=== PATIENT | female | born 1980 | race Caucasian/White ===

== ENCOUNTER → 2016-11-30 | Outpatient (REF) | payer BC | LOC: M SFHCCLAY 08:31 | PROVIDERS: ATTEND Family Medicine | DX: Z12.4 Encounter for screening for malignant neoplasm of cervix (principal) ==

== ENCOUNTER → 2020-10-08 | Outpatient (CLI) | payer BC ==
[~2020-10-08] MED LIST: ACIDCAP8 PO; APAP500T10 PO; CYAN100049 PO; FLUTISP; IBUP-1022 PO; NEXI20CA33 PO; VITA-199 PO; VITA1TAB61 PO; VITMTA PO; XANA0.25 PO
== END ==
LOC: M LABSMTC 09:37
PROVIDERS: ATTEND Anesthesiology
DX: Z01.812 Encounter for preprocedural laboratory examination (principal); Z20.822 Contact with and (suspected) exposure to COVID-19

== ENCOUNTER 2020-10-13 10:32 | Day surgery (SDC) | payer BC ==
[~2020-10-13] VITALS: Ht 162.6 cm; Wt 92.9 kg
[~2020-10-13 10:32] MED LIST changes: +LR 1,000 ML IV ONE; +ceFAZolin SOD 2 GM in IV 1 EA IV ONE
[2020-10-13] MEDS ORDERED: MIDAZOLAM INJ 2MG/2ML VIAL (J2250 PER 1MG) As Ordered ONE (12:44)
[2020-10-13] MEDS ORDERED: propofoL 200 MG/20 ML VIAL As Ordered ONE ×2 (12:45→12:49)
[2020-10-13] MEDS ORDERED: ONDANSETRON 4MG/2ML VIAL As Ordered ONE (12:45)
[2020-10-13] MEDS ORDERED: fentaNYL 100 MCG/2 ML INJECTION (J3010) As Ordered ONE ×2 (12:45→13:54)
[2020-10-13] MEDS ORDERED: ACETAMINOPHEN 1000MG 100ML IV BTL (OFIRMEV) (J0131 PER 10MG) As Ordered ONE ×2 (12:45→13:42)
[2020-10-13] MEDS ORDERED: SUGAMMADEX SODIUM 500 MG/5 ML VIAL (BRIDION) As Ordered ONE (12:45)
[2020-10-13] MEDS ORDERED: dexameTHASONE 4 MG/ML 1ML VIAL (J1100 PER 1MG) As Ordered ONE ×2 (12:45→13:41)
[2020-10-13] MEDS ORDERED: LIDOCAINE 2% 100MG/5ML SDV (FOR ANES.) As Ordered ONE (12:45)
[2020-10-13] MEDS ORDERED: ROCURONIUM BROMIDE 50 MG/5 ML VIAL As Ordered ONE (12:45)
[2020-10-13] MEDS ORDERED: BUPIVACAINE/EPIN 0.25% 30 ML VIAL As Ordered ONE (13:15)
[2020-10-13] MEDS ORDERED: BUPIVACAINE LIPOSOME/PF 1.3% 20ML VIAL (13.3MG/ML)(EXPAREL)(C9290 PER1MG) As Ordered ONE (13:16)
[2020-10-13] MEDS ORDERED: BUPIVACAINE HCL 0.25% 10ML VIAL As Ordered ONE ×2 (13:16→13:17)
[2020-10-13] MEDS ORDERED: ePHEDrine SULFATE 25 MG/5 ML(5MG/ML) SYRINGE As Ordered ONE (13:59)
[2020-10-13] MEDS ORDERED: KETOROLAC 60MG 2ML VIAL As Ordered ONE (14:06)
[2020-10-13] MEDS ORDERED: NS 1,000 ML IV SCH (14:35)
[2020-10-13] MEDS ORDERED: LR 1,000 ML IV SCH (14:35)
[2020-10-13] MEDS ORDERED: ONDANSETRON 4MG/2ML VIAL IV PRN (14:35)
[2020-10-13] MEDS ORDERED: METOCLOPRAMIDE INJ 10MG/2ML VIAL (J2765 PER 1) IV PRN (14:35)
[2020-10-13] MEDS ORDERED: fentaNYL 100 MCG/2 ML INJECTION (J3010) IV PRN (14:35)
[2020-10-13] MEDS ORDERED: oxyCODONE 5MG TAB PO PRN (14:35)
[2020-10-13] MEDS ORDERED: MEPERIDINE INJ 25 MG/ML VIAL (J2175) IV PRN (14:35)
[2020-10-13] MEDS ORDERED: traMADol 50 MG TAB PO PRN (14:40)
[2020-10-13 16:20] VITALS: BP 139/87
== END 2020-10-13 16:32 | disposition home or self-care (01) ==
LOC: M SDC 10:32
PROVIDERS: ATTEND Surgery
DX: K43.9 Ventral hernia without obstruction or gangrene (principal); Z88.8 Allergy status to other drugs, medicaments and biological substances; F41.9 Anxiety disorder, unspecified; J45.909 Unspecified asthma, uncomplicated; K21.9 Gastro-esophageal reflux disease without esophagitis; Z79.899 Other long term (current) drug therapy
CPT/HCPCS: 49570; 81025; 88302; C1781; C9290; J0131; J0690; J1100; J1885; J2250; J2405; J3010

== ENCOUNTER → 2022-02-04 | Outpatient (CLI) | payer BC ==
[~2022-02-04] MED LIST changes: -LR 1,000 ML IV ONE; +TAMS1CAP17 PO; -ceFAZolin SOD 2 GM in IV 1 EA IV ONE
== END ==
LOC: M CLY 13:35
PROVIDERS: ATTEND Physician Assistant
DX: Z01.818 Encounter for other preprocedural examination (principal)

== ENCOUNTER → 2022-02-07 | Outpatient (CLI) | payer BC | LOC: M LABSMTC 11:42 | PROVIDERS: ATTEND Anesthesiology | DX: Z01.818 Encounter for other preprocedural examination (principal); Z11.52 Encounter for screening for COVID-19 ==

== ENCOUNTER 2022-02-09 08:59 | Day surgery (SDC) | payer BC ==
[~2022-02-09] VITALS: Ht 162.6 cm; Wt 92.5 kg
[~2022-02-09 08:59] MED LIST changes: +ceFAZolin SOD 2 GM in IV 1 EA IV ONE
[2022-02-09] MEDS ORDERED: MIDAZOLAM INJ 2MG/2ML VIAL (J2250 PER 1MG) As Ordered ONE (09:10)
[2022-02-09] MEDS ORDERED: HYDR-3713 (09:23)
[2022-02-09] MEDS ORDERED: LR 1,000 ML IV SCH ×2 (09:30→12:25)
[2022-02-09] MEDS ORDERED: KETOROLAC 60MG 2ML VIAL As Ordered ONE (10:20)
[2022-02-09] MEDS ORDERED: LIDOCAINE 2% 100MG/5ML SDV (FOR ANES.) As Ordered ONE (10:20)
[2022-02-09] MEDS ORDERED: propofoL 200 MG/20 ML VIAL As Ordered ONE (10:20)
[2022-02-09] MEDS ORDERED: fentaNYL 100 MCG/2 ML INJECTION As Ordered ONE (10:20)
[2022-02-09] MEDS ORDERED: ONDANSETRON 4MG 2ML VIAL As Ordered ONE (10:20)
[2022-02-09] MEDS ORDERED: ISOVUE-300 61% 50ML VIAL As Ordered ONE (11:22)
[2022-02-09] MEDS ORDERED: ACETAMINOPHEN 1000MG 100ML IV BAG As Ordered ONE (11:52)
[2022-02-09] MEDS ORDERED: METOCLOPRAMIDE INJ 10MG/2ML VIAL IV PRN (12:25)
[2022-02-09] MEDS ORDERED: oxyCODONE 5MG TAB PO PRN (12:25)
[2022-02-09] MEDS ORDERED: fentaNYL 100 MCG/2 ML INJECTION IV PRN (12:25)
[2022-02-09] MEDS ORDERED: ONDANSETRON 4MG 2ML VIAL IV PRN (12:25)
[2022-02-09] MEDS ORDERED: PERCOCET 5MG/325MG TAB PO PRN (12:45)
[2022-02-09 13:50] VITALS: BP 135/76
[2022-02-15 19:07] LABS: CA Oxalate Dihy 80 % (.); Ca Ox Monohydrate 15 % (.); Size 7x4 mm (.)
== END 2022-02-09 14:00 | disposition home or self-care (01) ==
LOC: M SDC 08:59
PROVIDERS: ATTEND Urology
DX: N20.1 Calculus of ureter (principal); F41.9 Anxiety disorder, unspecified; F32.A Depression, unspecified; R73.01 Impaired fasting glucose; E78.2 Mixed hyperlipidemia; J30.2 Other seasonal allergic rhinitis; J45.990 Exercise induced bronchospasm; Z79.899 Other long term (current) drug therapy; Z79.2 Long term (current) use of antibiotics; Z88.1 Allergy status to other antibiotic agents; Z88.2 Allergy status to sulfonamides
CPT/HCPCS: 52332; 52352; 74420; 81025; 82365; C1769; C1894; C2617; J0131; J0690; J1100; J1885; J2250; J2405; J3010

== ENCOUNTER → 2022-09-12 | Outpatient (CLI) | payer BC ==
[~2022-09-12] MED LIST changes: +FLUT50SP17; -FLUTISP; +HYDR-3713; -ceFAZolin SOD 2 GM in IV 1 EA IV ONE
[2022-09-12 17:59] LABS: APPEARANCE, URINE HAZY (CLEAR); BACTERIA, URINE AUTO 1+ (NEGATIVE); BILIRUBIN, URINE AUTO NEGATIVE (NEGATIVE); BLOOD, URINE BLOOD NEGATIVE (NEGATIVE); COLOR, URINE YELLOW (YELLOW); GLUCOSE, URINE (UA) AUTO NEGATIVE (NEGATIVE); KETONE, URINE AUTO NEGATIVE (NEGATIVE); LEUKOCYTE ESTERASE, URINE AUTO 1+ (NEGATIVE); NITRITE, URINE AUTO NEGATIVE (NEGATIVE); PROTEIN, URINE AUTO NEGATIVE (NEGATIVE); RBC, URINE AUTO 1 /HPF (0-3); SPECIFIC GRAVITY URINE AUTO 1.005 (1.002-1.035); SQUAMOUS EPITHELIAL CELL UR AU 0 /HPF (0-6); UROBILINOGEN, URINE AUTO 0.2 mg/dL (0.0-2.0); WBC, URINE AUTO 12 /HPF (0-3)
== END ==
LOC: M PLAIMG 15:49
PROVIDERS: ATTEND Urology
DX: N20.0 Calculus of kidney (principal); N39.0 Urinary tract infection, site not specified

== ENCOUNTER → 2023-07-11 | Outpatient (REF) | payer BC ==
[~2023-07-11] MED LIST changes: -FLUT50SP17; +FLUTISP
[2023-07-11 18:43] LABS: HEMATOCRIT 44.3 % (36.0-47.0); HEMOGLOBIN 15.3 g/dl (12.0-15.5); MEAN CORPUSCULAR HEMOGLOBIN 32.9 pg (27.0-33.0); MEAN CORPUSCULAR HGB CONC 34.5 g/dl (32.0-36.5); MEAN CORPUSCULAR VOLUME 95.3 fl (80.0-96.0); PLATELET COUNT, AUTOMATED 286 10^3/uL (150-450); RED BLOOD COUNT 4.65 10^6/uL (4.00-5.40); WHITE BLOOD COUNT 11.2 10^3/uL (4.0-10.0)
[2023-07-11 18:54] LABS: HEMOGLOBIN A1c 5.4 % (4.0-6.0)
[2023-07-11 19:15] LABS: ALBUMIN 3.6 G/DL (3.2-5.2); ALKALINE PHOSPHATASE 96 U/L (46-116); ALT/SGPT 17 U/L (7.0-40); AST/SGOT 15 U/L (<34); BILIRUBIN,TOTAL 0.5 MG/DL (0.3-1.2); BLOOD UREA NITROGEN 22 MG/DL (9-23); CALCIUM LEVEL 9.2 MG/DL (8.5-10.1); CARBON DIOXIDE LEVEL 25 MMOL/L (20-31); CHLORIDE LEVEL 109 MMOL/L (98-107); CHOLESTEROL LEVEL 149 MG/DL (<200); CHOLESTEROL RISK RATIO 2.98 (<5); CREATININE FOR GFR 0.84 MG/DL (0.55-1.30); GLOMERULAR FILTRATION RATE > 60.0 (>58); GLUCOSE, FASTING 109 MG/DL (60-100); HDL CHOLESTEROL 49.9 MG/DL (>40); LDL CHOLESTEROL 81.3 MG/DL (<100); NON-HDL-C 99.1 MG/DL; POTASSIUM SERUM 4.8 MMOL/L (3.5-5.1); SODIUM LEVEL 141 MMOL/L (136-145); TOTAL PROTEIN 6.6 G/DL (5.7-8.2); TRIGLYCERIDES LEVEL 89 MG/DL (<150)
== END ==
LOC: M SFHCCLAY 09:43
PROVIDERS: ATTEND Family Medicine
DX: R03.0 Elevated blood-pressure reading, without diagnosis of hypertension (principal); R21 Rash and other nonspecific skin eruption; R73.01 Impaired fasting glucose; Z13.220 Encounter for screening for lipoid disorders; J02.9 Acute pharyngitis, unspecified

== ENCOUNTER → 2023-09-20 | Outpatient (CLI) | payer BC | LOC: M WUC 11:18 | PROVIDERS: ATTEND Urology | DX: N20.0 Calculus of kidney (principal) ==